=== PATIENT | female | born 1970 | race Caucasian/White ===

== ENCOUNTER 2020-06-28 19:25 | Emergency (ER) | payer SELFPAY ==
[2020-06-28 19:49] VITALS: BP 124/89; PULSE 96; RESP 18; TEMP 97.8
--- NOTE | 2020-06-28 22:26 | ED ---
General Adult HPI - General Chief complaint: Recheck/Abnormal Lab/Rx Stated complaint: COVId Test Time Seen by Provider: 06/28/20 22:24 Source: patient Mode of arrival: ambulatory Limitations: no limitations - History of Present Illness Initial comments: Patient is a 50-year-old female without any significant past medical history who presents to the emergency room for a Gordon virus test. Patient is currently driving back from [place] in attempting to enter [place] to go home. She needs a test before she can do this. Patient is asymptomatic. She does not have any known exposures.Patient has no other complaints at this time including shortness of breath, chest pain, abdominal pain, nausea or vomiting, headache, or visual changes. - Related Data Allergies Allergy/AdvReac Type Severity Reaction Status Date / Time No Known Allergies Allergy Verified 06/28/20 19:48 Review of Systems ROS Statement: Those systems with pertinent positive or pertinent negative responses have been documented in the HPI. ROS Other: All systems not noted in ROS Statement are negative. Past Medical History Past Medical History: No Reported History History of Any Multi-Drug Resistant Organisms: None Reported Past Surgical History: No Surgical Hx Reported Past Psychological History: No Psychological Hx Reported Smoking Status: Never smoker Past Alcohol Use History: None Reported Past Drug Use History: None Reported General Exam Limitations: no limitations General appearance: alert, in no apparent distress Head exam: Present: atraumatic Eye exam: Present: normal appearance ENT exam: Present: normal exam, mucous membranes moist Neck exam: Present: normal inspection, full ROM Respiratory exam: Present: normal lung sounds bilaterally. Absent: respiratory distress, wheezes Cardiovascular Exam: Present: regular rate, normal rhythm, normal heart sounds Course Vital Signs 06/28/20 19:46 Temperature 97.8 F Pulse Rate 96 Respiratory 18 Rate Blood Pressure 124/89 O2 Sat by Pulse 99 Oximetry Medical Decision Making - Medical Decision Making Patient did have a positive test result. As discussed she is asymptomatic. Vitals are stable. Patient does not qualify for antibody infusion. At this time patient is stable for discharge home to follow up with primary care. I did discuss that she [place] need [place] enter [place]. She is aware she can always return here for any worsening symptoms. - Lab Data Lab Results 06/28/20 Range/Units 19:49 Coronavirus (PCR) Detected A (Not Detectd) Disposition Clinical Impression: COVID-19 Disposition: HOME SELF-CARE Condition: Good Instructions (If sedation given, give patient instructions): Coronavirus Disease 2019 (COVID-19) Additional Instructions: Please follow up with primary care. Return to the emergency room for any worsening symptoms. Is patient prescribed a controlled substance at d/c from ED?: No Referrals: Igor Montanez MD [REFERRING] - 1-2 days Time of Disposition: 22:25
== END 2020-06-28 22:43 | disposition home or self-care (01) ==
LOC: EDSEX → EC 19:25
DX: U07.1 COVID-19 (principal)
CPT/HCPCS: 87635; 99283